=== PATIENT | male | born 1970 | race Caucasian/White ===

== ENCOUNTER → 2017-06-23 | Outpatient (CLI) | payer OTHER ==
[~2017-06-23] MED LIST: CIPROFLOXACIN500 M1 PO; FLOVENT HFA 2220 MCG; FLOVENT HFA 2220 MCG INH; HYDROCODON-ACE1 EAC7 PO; SINGULAIR 10 MG10 M1; SINGULAIR 10 MG10 M1 PO; VENTOLIN HFA 1818 GM
== END ==
LOC: RAD 09:01
DX: M25.562 Pain in left knee (principal); M25.561 Pain in right knee